=== PATIENT | male | born 1975 | race Caucasian/White ===

== ENCOUNTER → 2020-08-24 14:01 | Outpatient (BNVA) | payer OTHER, SELFPAY | PROVIDERS: Visit Provider Family Medicine | DX: I10 Essential (primary) hypertension (principal); Z13.6 Encounter for screening for cardiovascular disorders; E11.9 Type 2 diabetes mellitus without complications; R35.1 Nocturia; R00.2 Palpitations; K21.9 Gastro-esophageal reflux disease without esophagitis; Z68.43 Body mass index [BMI] 50.0-59.9, adult; F17.229 Nicotine dependence, chewing tobacco, with unspecified nicotine-induced disorders | CPT/HCPCS: 80053; 80061; 82043; 83036; 84153; 85025 ==

== ENCOUNTER → 2020-09-21 15:42 | Outpatient (BNVA) | payer OTHER, SELFPAY | PROVIDERS: PCP Family Medicine; Visit Provider Family Medicine | DX: E11.9 Type 2 diabetes mellitus without complications (principal); R79.89 Other specified abnormal findings of blood chemistry; I10 Essential (primary) hypertension; Z68.43 Body mass index [BMI] 50.0-59.9, adult; F17.229 Nicotine dependence, chewing tobacco, with unspecified nicotine-induced disorders | CPT/HCPCS: 80053; 80074 ==

== ENCOUNTER 2020-12-06 07:06 | Outpatient (CLI) | payer OTHER, SELFPAY ==
--- NOTE | 2020-12-06 07:15 | USCV_ITS ---
Jamie Dominguez Age: 45 Gender: M : 1975 Exam Date: 12/06/2020 07:26 Ordering Phys: Hector Mike M.D ([email or web address]) Technologist: Maddison Estevez Exam Location: [facility] [place] Indication: PALPITATIONS BP: 147 / 77 HR: 77 Rhythm: Sinus Technical Quality: Technically difficult study MEASUREMENTS (Male / Female) Normal Values 2D ECHO LV Diastolic Diameter PLAX 4.5 cm 4.2 - 5.9 / 3.9 - 5.3 cm LV Systolic Diameter PLAX 2.8 cm IVS Diastolic Thickness 1.8 cm 0.6 - 1.0 / 0.6 - 0.9 cm IVS Systolic Thickness 2.6 cm LVPW Diastolic Thickness 1.7 cm 0.6 - 1.0 / 0.6 - 0.9 cm LVPW Systolic Thickness 2.0 cm RV Chamber Size 3.0 cm LVOT Diameter 2.0 cm LV Ejection Fraction 2D Teich 65.0 % LV Ejection Fraction MOD 2C 69.2 % LV Ejection Fraction 2C AL 68.7 % LA Diameter 4.2 cm LA Width 3.5 cm LA Height 4.8 cm RA Width 3.0 cm RA Height 4.4 cm Aorta at Sinotubular Diameter 2.9 cm M-MODE Aortic Annulus Diameter 3.2 cm LA Ao Ratio MM 1.4 MV E Point Septal Separation 1.0 cm DOPPLER AV Peak Velocity 143.0 cm/s LVOT Peak Velocity 99.0 cm/s AV Area Cont Eq vti 2.3 cm squared AV Area Cont Eq pk 2.2 cm squared MV Area PHT 5.0 cm squared Mitral E to A Ratio 1.3 MV E' Velocity 55.0 cm/s Mitral E to MV E' Ratio 8.9 Mitral E to LV E' Lateral Ratio 8.0 Mitral E to LV E' Septal Ratio 10.1 TR Peak Velocity 247.7 cm/s TR Peak Gradient 24.5 mmHg TV Peak E Velocity 82.0 cm/s Right Atrial Pressure 3.0 mmHg Pulmonary Artery Systolic Pressu 27.5 mmHg PV Peak Velocity 121.0 cm/s RV Acceleration Time 0.1 s RV Ejection Time 0.3 s RV AcT/ET 0.3 FINDINGS Left Ventricle Normal left ventricular size. LV systolic function is normal with EF of 55-60%. No regional wall motion abnormalities. Normal diastolic filling pattern. Right Ventricle The right ventricle is normal in size and function. Right Atrium The right atrium is normal in size. Left Atrium The left atrium is normal in size. Mitral Valve Structurally normal mitral valve without significant stenosis or prolapse. There is trace mitral regurgitation. Aortic Valve Structurally normal aortic valve without significant sclerosis or stenosis. There is no aortic regurgitation. Tricuspid Valve Structurally normal tricuspid valve without significant stenosis. Trace tricuspid regurgitation. Pulmonary artery systolic pressure is normal. Pulmonic Valve Grossly normal Pericardium Normal pericardium without effusion. Aorta Normal ascending aorta dimension. CONCLUSIONS LV systolic function is normal with EF of 55-60% Diatsolic function is normal Trace mitral regurgitation and trace tricuspid regurigtation noted No comparison studies are available. Hector Mike MD (Electronically Signed) Final Date: 20 December 2020 15:04 S
== END 2020-12-06 07:07 | disposition home or self-care (01) ==
LOC: RAD 07:10
PROVIDERS: PCP Family Medicine; Visit Provider Internal Medicine
DX: I08.1 Rheumatic disorders of both mitral and tricuspid valves (principal); R00.2 Palpitations
CPT/HCPCS: 93306

== ENCOUNTER → 2020-12-07 15:34 | Outpatient (BNVA) | payer OTHER, SELFPAY | PROVIDERS: PCP Family Medicine; Visit Provider Family Medicine | DX: E11.9 Type 2 diabetes mellitus without complications (principal); K64.4 Residual hemorrhoidal skin tags; K21.9 Gastro-esophageal reflux disease without esophagitis | CPT/HCPCS: 80053; 80061; 83036 ==

== ENCOUNTER → 2021-08-12 14:58 | Outpatient (BNVA) | payer OTHER, SELFPAY | PROVIDERS: PCP Family Medicine; Visit Provider Family Medicine | DX: E11.9 Type 2 diabetes mellitus without complications (principal); I10 Essential (primary) hypertension; E78.5 Hyperlipidemia, unspecified; L21.9 Seborrheic dermatitis, unspecified | CPT/HCPCS: 80053; 82043; 83036 ==

== ENCOUNTER → 2022-02-28 09:02 | Outpatient (BNVA) | payer OTHER, SELFPAY | PROVIDERS: PCP Family Medicine; Visit Provider Family Medicine | DX: I10 Essential (primary) hypertension (principal); E11.9 Type 2 diabetes mellitus without complications | CPT/HCPCS: 80053; 80061; 82043; 83036; 85025 ==

== ENCOUNTER → 2022-10-19 15:55 | Outpatient (BNVA) | payer OTHER, SELFPAY | PROVIDERS: PCP Family Medicine; Visit Provider Family Medicine | DX: E11.9 Type 2 diabetes mellitus without complications (principal); R35.1 Nocturia | CPT/HCPCS: 80053; 83036; 84153 ==

== ENCOUNTER → 2023-03-06 07:31 | Outpatient (BNVA) | payer OTHER, SELFPAY | PROVIDERS: PCP Family Medicine; Visit Provider Family Medicine | DX: E78.5 Hyperlipidemia, unspecified (principal); I10 Essential (primary) hypertension; K21.9 Gastro-esophageal reflux disease without esophagitis; E11.9 Type 2 diabetes mellitus without complications | CPT/HCPCS: 80053; 80061; 82043; 83036; 85025 ==

== ENCOUNTER → 2023-09-06 16:13 | Outpatient (BNVA) | payer SELFPAY | PROVIDERS: PCP Family Medicine; Visit Provider Family Medicine | DX: E11.9 Type 2 diabetes mellitus without complications (principal); Z13.6 Encounter for screening for cardiovascular disorders | CPT/HCPCS: 80053; 83036 ==

== ENCOUNTER → 2024-04-03 15:43 | Outpatient (BNVA) | payer OTHER, SELFPAY | PROVIDERS: PCP Family Medicine; Visit Provider Family Medicine | DX: I10 Essential (primary) hypertension (principal); E78.2 Mixed hyperlipidemia; E11.9 Type 2 diabetes mellitus without complications; K21.9 Gastro-esophageal reflux disease without esophagitis; I49.3 Ventricular premature depolarization; R00.2 Palpitations; E04.9 Nontoxic goiter, unspecified | CPT/HCPCS: 80061; 82043; 82607; 83036; 83516; 83735; 84439; 84443; 84481; 85025; 86376 ==

== ENCOUNTER 2024-04-24 15:30 | Outpatient (CLI) | payer OTHER, SELFPAY ==
--- NOTE | 2024-04-24 16:00 | USR_ITS ---
PROCEDURE INFORMATION: Exam: US Soft Tissue Head and Neck, TI-RADS Exam date and time: 04/24/2024 3:39 PM Age: 48 years old Clinical indication: Condition or disease; Thyroid disorder; Goiter, non-toxic; Type not specified TECHNIQUE: Imaging protocol: Real-time ultrasound scan of the neck with image documentation. Exam focused on the thyroid. COMPARISON: No relevant prior studies available. FINDINGS: Right thyroid lobe: Enlarged right thyroid lobe, containing a large nodule. Left thyroid lobe: Not enlarged. Isthmus: Thickened isthmus measuring 0.8 cm. No nodules. LESION 1: Thyroid nodule 1 Size: 5.5 cm Thyroid nodule 1 Location: Mid right thyroid lobe Thyroid nodule 1 Composition: Solid Thyroid nodule 1 Echogenicity: Hypoechoic Thyroid nodule 1 Shape: Wider than taller Thyroid nodule 1 Margins: Lobulated Thyroid nodule 1 Echogenic foci: No Thyroid nodule 1 Points: 6 Lymph nodes: No enlarged nodes. US/US thyroid [id number] IMPRESSION: Mid right thyroid lobe nodule measuring 5.5 cm, with TI-RADS 4 imaging characteristics, for which FNA is recommended.
== END 2024-04-24 15:31 | disposition home or self-care (01) ==
PROVIDERS: PCP Family Medicine; Visit Provider Family Medicine
DX: E04.1 Nontoxic single thyroid nodule (principal)
CPT/HCPCS: 76536

== ENCOUNTER 2024-07-10 22:38 | Emergency (ER) | payer OTHER, SELFPAY ==
[2024-07-10 22:53] VITALS: BP 190/94; PULSE 75; RESP 18; TEMP 36.8; O2SAT 95; BMI 50.3
[2024-07-10 22:56] VITALS: PULSE 70; RESP 16; O2SAT 96
--- NOTE | 2024-07-10 23:34 | XRR_ITS ---
PROCEDURE INFORMATION: Exam: XR Chest Exam date and time: 07/10/2024 11:49 PM Age: 48 years old Clinical indication: Cough and fever and shortness of breath; Patient HX: Cough with SOB and fever; Additional info: Cough, fever TECHNIQUE: Imaging protocol: Radiologic exam of the chest. Views: 2 views. COMPARISON: No relevant prior studies available. FINDINGS: Lungs: The lungs are clear and free of effusions. Pleural spaces: Unremarkable. No pleural effusion. No pneumothorax. Heart/Mediastinum: The heart and mediastinum are unremarkable. Bones/joints: Unremarkable. XR/XR chest 2V* [id number] IMPRESSION: Unremarkable
--- NOTE | 2024-07-10 23:35 | W.ED.URI ---
HPI - URI/Sore Throat General: Chief Complaint: Upper Respiratory Infection Stated Complaint: Can't Breath Time Seen by Provider: 07/10/24 22:58 Source: patient Mode of arrival: ambulatory Limitations: no limitations History of Present Illness: Patient is a 48-year-old male that presents to the emergency department with cough, wheezing and intermittent fevers. He states this all began on Sunday morning when he awoke. He states he has had some intermittent, subjective fevers. He denies any abdominal pain, nausea, vomiting. He states he is a former smoker but quit many years ago. He reports some wheezing and shortness of breath with this. He is concerned that he may have pneumonia. He denies any exposures to anybody that has had influenza or COVID recently. He presents to the emergency department for further evaluation and treatment. Associated symptoms: Reports fever(s) (Subjective); Deny abdominal pain, chest pain, ear or mastoid pain, headache(s), nausea or vomiting Related Data Previous Rx's Medication Instructions Recorded aspirin 81 mg tablet,delayed 81 mg PO DAILY #30 tabs 09/21/22 release ketoconazole 2 % shampoo 1 applic topical .twice weekly 09/21/22 #120 mL lisinopril 40 mg tablet 40 mg PO DAILY #90 tabs 09/06/23 metoprolol tartrate 25 mg tablet 37.5 mg (1.5 x 25 mg) PO BID #270 09/06/23 tabs rosuvastatin 10 mg tablet 10 mg PO .AT BEDTIME #90 tabs 03/04/24 metformin 1,000 mg tablet 1,000 mg PO DAILY #90 tabs 03/24/24 omeprazole 40 mg capsule,delayed 40 mg PO DAILY #90 caps 04/03/24 release terbinafine HCl 250 mg tablet 250 mg PO DAILY 14 days #14 tabs 04/03/24 empagliflozin 10 mg tablet See Rx Instructions .Route 04/17/24 (Jardiance) .COMPLEX #90 tabs diltiazem HCl 360 mg capsule,24 See Rx Instructions .Route 06/17/24 hr,extended release .COMPLEX #30 caps Allergies Allergy/AdvReac Type Severity Reaction Status Date / Time No Known Allergies Allergy Verified 07/10/24 22:57 Review of Systems Const: Reports: fever(s) (Subjective) Eyes: Denies: change in vision ENMT: Denies: throat pain or ear or mastoid pain Card: Denies: chest pain Resp: Reports: dyspnea, non-productive cough and wheezing GI: Denies: abdominal pain, nausea or vomiting : Denies: flank pain, difficulty urinating or dysuria Musc: Denies: neck pain or back pain Skin/Breast: Denies: rash, pruritus or erythema Neuro: Denies: headache(s) or numbness in extremities Psych: Denies: anxiety Endo: Denies: polyuria or polydipsia Arnold/Lymph: Denies: petechiae All/Imm: Denies: urticaria, throat swelling or tongue swelling PFSH ED PFSH: Medical History Morbid obesity with BMI of 50.0-59.9, adult PVC (premature ventricular contraction) has seen [facility]; has had ECHO; 14d monitor Palpitations has seen [facility] cardio; has had ECHO; 14d monitor--PVCs, PACs Goiter Hyperlipidemia, mixed Nicotine dependence, chewing tobacco, with unspecified nicotine-induced disorders Essential hypertension GERD (gastroesophageal reflux disease) Type 2 diabetes mellitus, without long-term current use of insulin Surgical History No pertinent past surgical history Family History Other Atrial fibrillation Diabetes Hypertension Social History (Updated 07/10/24 @ 23:44 by CHRISTEL Vela) Smoking and tobacco/nicotine status: former use of tobacco/nicotine Alcohol intake: never Substance/Drug Use: never Household members: spouse and children Marital status: Number of children: 2 Highest education level completed: High School Graduate Current occupational status: employed 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 Physical Exam Const: COMMON NORMALS: no acute distress and patient oriented x3 GENERAL APPEARANCE: cooperative ORIENTATION/CONSCIOUSNESS: Yes awake HENMT: COMMON NORMALS: normocephalic, atraumatic, external ears normal, EAC's normal, TM's normal bilaterally and Normal external nose present HEAD & SCALP: normocephalic and atraumatic FACE & SINUS: normal facial exam NOSE: Normal external nose present EXTERNAL EAR: Yes external ears normal EXTERNAL AUDITORY CANAL: EAC's normal TYMPANIC MEMBRANE: TM's normal bilaterally MOUTH: Normal oral and palatal mucosa present and tongue normal; no audible dysphonia, no drooling and no trismus THROAT: posterior oropharynx normal Neck/C-Spine: COMMON NORMALS: full ROM and supple Resp: COMMON NORMALS: normal respiratory effort EFFORT & INSPECTION: Yes able to speak in complete sentences AUSCULTATION: crackles Laterality: bilateral and posterior and wheezes expiratory wheezes, left lower and right lower Cardio: COMMON NORMALS: regular rate and regular rhythm RATE: regular rate RHYTHM: regular rhythm GI: COMMON NORMALS: Soft to palpation AUSCULTATION: Yes normoactive bowel sounds PALPATION: Yes Soft to palpation, No Tenderness to palpation present (GI), No Guarding due to palpation present (GI) and No Rigid due to palpation Extremity: COMMON NORMALS: normal to inspection and full ROM Neuro: COMMON NORMALS: patient oriented x3 Psych: COMMON NORMALS: mental status grossly normal, cooperative, normal affect and speech normal SPEECH: Yes normal speech Skin: COMMON NORMALS: no rashes or lesions noted, no jaundice and no petechiae GENERAL SKIN EXAM: no rashes or lesions noted TRAUMA: no lacerations or abrasions Course Reevaluation(s): Reevaluation #1: Patient reports he is feeling better after the breathing treatment. He does not have any infiltrates noted on the chest x-ray. He did test positive for influenza A. His wheezing has improved with the albuterol. Time: 12:48 Vital Signs: Vital signs: Vital Signs Temperature 98.3 F 07/10/24 22:53 Pulse Rate 73 07/11/24 00:20 Respiratory Rate 17 07/11/24 00:20 Blood Pressure 190/94 07/10/24 22:53 Pulse Oximetry 96 07/11/24 00:20 Oxygen Delivery Me thod Room Air 07/11/24 00:20 MDM - URI/Sore Throat Medical Decision Making Patient was advised to use the albuterol as directed, continue [id number] Tylenol or ibuprofen for fever or bodyaches and follow-up with his primary care provider next week for recheck. Patient reports he is feeling better after the albuterol. Wheezing has resolved. The patient did test positive for influenza A. Because his symptoms began on Sunday he was outside the timeframe for treatment with Tamiflu. His COVID and RSV were both negative. I recommended that he follow-up as instructed and return to the emergency department with any worsening symptoms. The patient expressed understanding. Differential Diagnosis Likely upper respiratory infection, viral infection, bronchitis and influenza Lab Data I reviewed the patient's lab results. Radiology Impressions Chest X-Ray 07/10/24 23:34 IMPRESSION: Unremarkable Laboratory Results Coronavirus (PCR) Negative (Negative) 07/10/24 23:50 Influenza A (PCR) Positive (Negative) 07/10/24 23:50 Influenza Type B (PCR) Negative (Negative) 07/10/24 23:50 RSV (PCR) Negative (Negative) 07/10/24 23:50 All radiology interpretation(s) finalized by discharge Critical Care Time Critical Care Time: Critical Care Time: No Discharge Plan Discharge Patient Disposition: Home Clinical Impression: Influenza A, Acute bronchitis, Expiratory wheezing Condition: Stable Prescriptions: No Action aspirin 81 mg tablet,delayed release (DR/EC) 81 mg PO DAILY Qty: 30 0RF ketoconazole 2 % shampoo 1 applic topical .twice weekly Qty: 120 0RF metoprolol tartrate 25 mg tablet 37.5 mg PO BID Qty: 270 3RF lisinopril 40 mg tablet 40 mg PO DAILY Qty: 90 1RF terbinafine HCl 250 mg tablet 250 mg PO DAILY 14 Days Qty: 14 0RF omeprazole 40 mg capsule,delayed release(DR/EC) 40 mg PO DAILY Qty: 90 0RF rosuvastatin 10 mg tablet 10 mg PO .AT BEDTIME Qty: 90 1RF metformin 1,000 mg tablet 1,000 mg PO DAILY Qty: 90 1RF Rx Instructions: 1,000 mg orally daily; Jardiance 10 mg tablet See Rx Instructions .ROUTE .COMPLEX Qty: 90 1RF Dose Instruction: TAKE 1 TABLET BY MOUTH EVERY MORNING Rx Instructions: TAKE 1 TABLET BY MOUTH EVERY MORNING diltiazem HCl 360 mg capsule,extended release 24 hr See Rx Instructions .ROUTE .COMPLEX Qty: 30 1RF Dose Instruction: TAKE ONE CAPSULE BY MOUTH EVERY DAY Rx Instructions: TAKE ONE CAPSULE BY MOUTH EVERY DAY Discharge Orders: Discharge ED (Routine); Ordered 07/11/24 Ordered By: Yared Kelley Referrals: Deyanira Whitman MD [Primary Care Provider] - Discharge Diet: Usual diet Discharge Activity: Resume usual activity Patient Instructions: Influenza (ED), Acute Bronchitis (ED), Opioid Safety, Pain Management Activity Restrictions/Additional Instructions: Use the inhaler as directed; 2 puffs every 4-6 hours as needed for wheezing. Use [id number] Tylenol or ibuprofen as directed for fever and/or bodyaches. [id number] Robitussin with plenty of clear fluids as directed. Try to stay away from people until you are fever free for 24 hours. Follow-up with your doctor in 1 week for recheck. Return to the emergency department with any worsening symptoms. Coding Level of Care Code ED Lumber Hacker for Surya Luke
[2024-07-11 00:20] VITALS: PULSE 73; RESP 17; O2SAT 96
[2024-07-11] MEDS: albuterol 8 gm MDI 2 PUFF INHALATION (00:20)
[2024-07-11 00:31] LABS: Covid PCR NEGATIVE (Negative); Influenza A POSITIVE (Negative); Influenza B NEGATIVE (Negative); Respiratory Syncytial Virus Ce NEGATIVE (Negative)
== END 2024-07-11 01:08 | disposition home or self-care (01) ==
PROVIDERS: Emergency Provider Physician Assistant; PCP Family Medicine
DX: J10.1 Influenza due to other identified influenza virus with other respiratory manifestations (principal); J20.9 Acute bronchitis, unspecified; R06.2 Wheezing; Z11.52 Encounter for screening for COVID-19; Z79.82 Long term (current) use of aspirin; Z87.891 Personal history of nicotine dependence; E11.9 Type 2 diabetes mellitus without complications; I10 Essential (primary) hypertension
CPT/HCPCS: 12345; 71046; 87637; 94640; 99283; J3535

== ENCOUNTER 2024-10-01 15:05 | Emergency (ER) | payer OTHER, SELFPAY ==
[2024-10-01 15:17] VITALS: PULSE 75; TEMP 36.6; O2SAT 95
--- NOTE | 2024-10-01 17:32 | XRR_ITS ---
PROCEDURE INFORMATION: Exam: XR Right Humerus Exam date and time: 10/01/2024 5:36 PM Age: 48 years old Clinical indication: Pain; Upper arm; Right; Additional info: Pain to distal elbow, concern for biceps tear TECHNIQUE: Imaging protocol: Radiologic exam of the right humerus. Views: 2 or more views. COMPARISON: No relevant prior studies available. FINDINGS: Bones/joints: The humerus is grossly intact. No evidence of fracture. Soft tissues: No gross soft tissue abnormality. 3 mm calcification in the region of the greater tuberosity, possibly reflecting calcium hydroxyapatite deposition. XR/[place] [id number] IMPRESSION: 1. No evidence of fracture or malalignment. If there is concern for ligamentous or tendon pathology, follow-up outpatient MRI may be helpful.
--- NOTE | 2024-10-01 17:34 | W.ED.EXTPRO ---
HPI - Extremity Problem General: Chief complaint: Extremity Injury, Upper Stated complaint: R arm pain Time Seen by Provider: 10/01/24 17:20 Source: patient Mode of arrival: ambulatory Limitations: no limitations History of Present Illness: Patient is a 48-year-old male who presents the emergency department complaining of right upper extremity pain a few hours prior to coming in. At work, patient was pulling a large neftali when he felt sudden sharp pain through his distal right bicep, arrives stating there is deformity near the elbow. Reports diminished strength as well as significant pain with range of motion at the elbow, worse with flexion. Has not taken any medications for this, no trauma reported. No other symptoms at this time. Reporting the pain is severe. MD Complaint: extremity pain Onset (ago): hour(s) Pain Consistency: constant Location: right and upper extremity Radiation: proximal Exacerbating factors: range of motion and palpation Associated symptoms: Deny chest pain, fever(s) or rash Related Data Previous Rx's ?Medication ?Instructions ?Recorded aspirin 81 mg tablet,delayed 81 mg PO DAILY #30 tabs 09/21/22 release ketoconazole 2 % shampoo 1 applic topical .twice weekly 09/21/22 #120 mL metoprolol tartrate 25 mg tablet 37.5 mg (1.5 x 25 mg) PO BID #270 09/06/23 tabs rosuvastatin 10 mg tablet 10 mg PO .AT BEDTIME #90 tabs 03/04/24 metformin 1,000 mg tablet 1,000 mg PO DAILY #90 tabs 03/24/24 terbinafine HCl 250 mg tablet 250 mg PO DAILY 14 days #14 tabs 04/03/24 empagliflozin 10 mg tablet See Rx Instructions .Route 04/17/24 (Jardiance) .COMPLEX #90 tabs omeprazole 40 mg capsule,delayed 40 mg PO DAILY #90 caps 07/11/24 release amoxicillin 500 mg-potassium 1 tab PO TID #30 tabs 07/14/24 clavulanate 125 mg tablet (Augmentin) prednisone 20 mg tablet 20 mg PO BID #10 tabs 07/14/24 diltiazem HCl 360 mg capsule,24 See Rx Instructions .Route 08/11/24 hr,extended release .COMPLEX #30 caps lisinopril 40 mg tablet 40 mg PO DAILY #90 tabs 08/11/24 Allergies Allergy/AdvReac Type Severity Reaction Status Date / Time No Known Allergies Allergy Verified 10/01/24 15:23 Review of Systems General: Reports: 10 or more systems reviewed and unremarkable except in HPI and below Const: Denies: fever(s) or chills Card: Denies: chest pain Resp: Denies: dyspnea or productive cough GI: Denies: abdominal pain, nausea, vomiting or diarrhea : Denies: flank pain Musc: Reports: extremity pain (rue) and muscle weakness; Denies: neck pain, back pain, extremity swelling, joint pain, joint swelling, joint redness, joint warmth or limited range of motion Skin/Breast: Denies: rash Neuro: Denies: headache(s), numbness in extremities or weakness in extremities PFSH ED PFSH: Medical History Morbid obesity with BMI of 50.0-59.9, adult PVC (premature ventricular contraction) has seen [facility] Cardio; has had ECHO; 14d monitor Palpitations has seen [facility] cardio; has had ECHO; 14d monitor--PVCs, PACs Goiter Hyperlipidemia, mixed Nicotine dependence, chewing tobacco, with unspecified nicotine-induced disorders Essential hypertension GERD (gastroesophageal reflux disease) Type 2 diabetes mellitus, without long-term current use of insulin Surgical History No pertinent past surgical history Family History Other Atrial fibrillation Diabetes Hypertension Social History Smoking and tobacco/nicotine status: never used tobacco/nicotine Alcohol intake: never Substance/Drug Use: never Household members: spouse and children Marital status: Number of children: 2 Highest education level completed: High School Graduate Current occupational status: employed 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 Physical Exam Const: COMMON NORMALS: no acute distress, patient oriented x3, no limitations, healthy appearing, alert and well nourished HENMT: COMMON NORMALS: normocephalic and atraumatic HEAD & SCALP: normocephalic and atraumatic Neck/C-Spine: COMMON NORMALS: full ROM, supple and no meningeal signs Resp: COMMON NORMALS: normal respiratory effort, No use of accessory muscles and clear to auscultation bilaterally AUSCULTATION: clear to auscultation bilaterally Cardio: COMMON NORMALS: regular rate and regular rhythm RATE: regular rate RHYTHM: regular rhythm Extremity: COMMON NORMALS: normal to inspection, full ROM, capillary refill normal, no joint enlargement and no clubbing, cyanosis or edema NARRATIVE EXTREMITY EXAM: Severe pain with range of motion at the right upper extremity at the elbow, specifically with flexion. No palpable Cecil deformity, though there is reproducible tenderness to palpation at the right distal insertion of the biceps tendon. Negative Yergason sign. Neuro: COMMON NORMALS: patient oriented x3, moves all extremities, no focal motor deficits and no sensory deficits noted SENSORIUM/ORIENTATION: Yes alert MENINGEAL SIGNS: Yes no meningeal signs Skin: COMMON NORMALS: no rashes or lesions noted GENERAL SKIN EXAM: no rashes or lesions noted Course Vital Signs: Vital signs: Vital Signs Temperature 97.9 F 10/01/24 15:17 Pulse Rate 75 10/01/24 15:17 Pulse Oximetry 95 10/01/24 15:17 Oxygen Delivery Me thod Room Air 10/01/24 15:17 MDM - Extremity (Nontraumatic) Medical Decision Making Is presenting with right upper extremity pain after pulling. Tender to palpation at distal right humerus, no Cecil deformity. Significant pain with range of motion however, I do have concern of a biceps strain at distal insertion. X-ray was unremarkable. Discussed conservative therapy will have him see orthopedics for further evaluation. Work note was provided and encouraged him to avoid use specifically of pain. Lab Data Radiology Impressions Humerus X-Ray 10/01/24 17:32 IMPRESSION: 1. No evidence of fracture or malalignment. If there is concern for ligamentous or tendon pathology, follow-up outpatient MRI may be helpful. All radiology interpretation(s) finalized by discharge Discharge Plan Discharge Patient Disposition: Home Clinical Impression: Biceps strain Qualifiers: Encounter type: initial encounter Laterality: right Qualified Code(s): S46.211A - Strain of muscle, fascia and tendon of other parts of biceps, right arm, initial encounter Condition: Stable Prescriptions: No Action prednisone 20 mg tablet 20 mg PO BID Qty: 10 0RF amoxicillin-pot clavulanate [Augmentin] 500-125 mg tablet 1 tab PO TID Qty: 30 0RF aspirin 81 mg tablet,delayed release (DR/EC) 81 mg PO DAILY Qty: 30 0RF ketoconazole 2 % shampoo 1 applic topical .twice weekly Qty: 120 0RF metoprolol tartrate 25 mg tablet 37.5 mg PO BID Qty: 270 3RF terbinafine HCl 250 mg tablet 250 mg PO DAILY 14 Days Qty: 14 0RF rosuvastatin 10 mg tablet 10 mg PO .AT BEDTIME Qty: 90 1RF metformin 1,000 mg tablet 1,000 mg PO DAILY Qty: 90 1RF Rx Instructions: 1,000 mg orally daily; Jardiance 10 mg tablet See Rx Instructions .ROUTE .COMPLEX Qty: 90 1RF Dose Instruction: TAKE 1 TABLET BY MOUTH EVERY MORNING Rx Instructions: TAKE 1 TABLET BY MOUTH EVERY MORNING omeprazole 40 mg capsule,delayed release(DR/EC) 40 mg PO DAILY Qty: 90 0RF diltiazem HCl 360 mg capsule,extended release 24 hr See Rx Instructions .ROUTE .COMPLEX Qty: 30 1RF Dose Instruction: TAKE ONE CAPSULE BY MOUTH EVERY DAY Rx Instructions: TAKE ONE CAPSULE BY MOUTH EVERY DAY lisinopril 40 mg tablet 40 mg PO DAILY Qty: 90 1RF Discharge Orders: Discharge ED (Routine); Ordered 10/01/24 Ordered By: Lobo Jackson Referrals: Deyanira Whitman MD [Primary Care Provider] - Activity Restrictions/Additional Instructions: Please follow-up with orthopedics. Ice/heat. Ibuprofen and Tylenol. Minimal range of motion exercises as tolerated, do not push through pain. Return with any new or worsening. Stand Alone Forms: Work/School Release Print Language: Sami Coding Level of Care Code ED Motor Coach Operator for Surya Luke
[2024-10-01] MEDS: ketorolac 60 mg/2 mL INJ IM (17:50)
[2024-10-01 19:16] VITALS: BP 181/98; PULSE 75; O2SAT 94
--- NOTE | 2024-10-02 07:52 | DCPLANNER ---
messaged ortho for er f/u
== END 2024-10-01 19:17 | disposition home or self-care (01) ==
PROVIDERS: Emergency Provider Physician Assistant; PCP Family Medicine
DX: S46.211A Strain of muscle, fascia and tendon of other parts of biceps, right arm, initial encounter (principal); Z79.82 Long term (current) use of aspirin; Z79.84 Long term (current) use of oral hypoglycemic drugs; E11.9 Type 2 diabetes mellitus without complications; E78.2 Mixed hyperlipidemia; X58.XXXA Exposure to other specified factors, initial encounter
CPT/HCPCS: 73060; 96372; 99284; J1885

== ENCOUNTER → 2024-10-07 13:37 | Outpatient (BNVA) | payer OTHER, SELFPAY | PROVIDERS: PCP Family Medicine; Visit Provider Orthopaedic Surgery | DX: S46.211A Strain of muscle, fascia and tendon of other parts of biceps, right arm, initial encounter (principal); X58.XXXA Exposure to other specified factors, initial encounter | CPT/HCPCS: 73060 ==

== ENCOUNTER 2024-10-09 13:02 | Outpatient (CLI) | payer OTHER, SELFPAY ==
--- NOTE | 2024-10-09 13:45 | MR_ITS ---
WS: [id number] MRI RIGHT ELBOW WITHOUT CONTRAST. COMPARISON: Radiographs 10/07/2024 Multiplanar, multisequence imaging is performed without contrast. Complete tear of the biceps tendon at the radial tuberosity insertion. The biceps tendon is retracted and redundant with a large amount of surrounding fluid centered in the mid biceps tendon sheath. There is fluid signal at the radial tuberosity but no residual biceps tendon. The brachialis tendon is normal. Normal insertion to the anterior tuberosity of the coronoid process. No acute fractures or marrow edema. No joint effusion. The visualized triceps tendon is normal. No signal abnormality within the ulnar or radial collateral ligaments. MR/MR elbow RT wo con* [id number] IMPRESSION: 1. Complete tear of the biceps tendon at the radial tuberosity with retraction approximately 12 cm. 2. A large amount of edema within the biceps tendon sheath and the biceps musc le in the mid humerus. 3. Brachialis tendon is intact.
== END 2024-10-09 13:03 | disposition home or self-care (01) ==
PROVIDERS: PCP Family Medicine; Visit Provider Orthopaedic Surgery
DX: S46.211A Strain of muscle, fascia and tendon of other parts of biceps, right arm, initial encounter (principal); X58.XXXA Exposure to other specified factors, initial encounter; R60.0 Localized edema
CPT/HCPCS: 73221

== ENCOUNTER → 2025-01-22 10:03 | Outpatient (BNVA) | payer OTHER, SELFPAY | PROVIDERS: PCP Family Medicine; Visit Provider Family Medicine | DX: E11.9 Type 2 diabetes mellitus without complications (principal) | CPT/HCPCS: 80053; 83036 ==

== ENCOUNTER 2025-03-31 06:51 | Day surgery (SDC) | payer OTHER, SELFPAY ==
[2025-03-31 07:14] VITALS: BP 173/109; PULSE 67; RESP 18; TEMP 36.6; O2SAT 97; BMI 47.5
--- NOTE | 2025-03-31 08:20 | ANES.PREANE2 ---
Pre-Anesthetic Assessment Height/Weight: Height 1.93 m Weight 176.901 kg Temp Pulse Resp BP Pulse Ox O2 Del Method 97.9 F 67 18 173/109 97 Room Air 03/31/25 07:14 03/31/25 07:14 03/31/25 07:14 03/31/25 07:14 03/31/25 07:14 03/31/25 07:14 Preop Diagnosis: screening Operation Date: 03/31/25 08:30 Proposed Procedures p Colonoscopy 10601 [id number] R19.5(Not Applicable) - Keegan Gary MD Familial anesthetic complications: none Was Beta Rosita taken within 24 hours: N/A Was Clonidine taken within 24 hours: N/A Last intake: Intake Last Liquid Date 03/30/25 Last Liquid Time 23:00 Last Solid Date 03/29/25 Last Solid Time 20:00 Social No alcohol and No tobacco Exam alert, oriented x 3, clear to auscultation bilaterally and regular rate & rhythm Airway Submandibular: within normal limits Cervical ROM: within normal limits Mallampati: Class II Dentition: full History/ROS No significant history except as noted and No significant complaints Pulmonary Exertional Dyspnea CV/HEM Hypertension PVC's/runs of a fast heart rate/ not diagnosed as yet. None reported Hepatic None reported GI Gastroesophageal Reflux Disease Metabolic Morbid Obesity [facility] [place] None reported Neuropsych Anxiety Anesthetic Plan ASA status: 3 Anesthesia: MAC Risk of > 500 ml blood loss (7ml/kg in children): No Medications/Allergies Home Medications ?Medication ?Instructions ?Recorded ?Confirmed ?Last Taken ?Type aspirin 81 mg tablet,delayed 81 mg PO DAILY #30 tabs 09/21/22 03/31/25 03/25/25 Rx release omeprazole 40 mg capsule,delayed 40 mg PO DAILY #90 caps 01/22/25 03/31/25 03/31/25 Rx release lisinopril 40 mg tablet 40 mg PO DAILY #7 tabs 03/24/25 03/31/25 03/25/25 Rx metoprolol tartrate 25 mg tablet 37.5 mg (1.5 x 25 mg) PO BID #21 03/24/25 03/31/25 03/31/25 Rx tabs rosuvastatin 10 mg tablet 10 mg PO .AT BEDTIME #7 tabs 03/24/25 03/31/25 03/30/25 Rx diltiazem HCl 360 mg capsule,24 360 mg PO DAILY #7 caps 03/25/25 03/31/25 03/31/25 Rx hr,extended release empagliflozin 10 mg tablet 10 mg PO DAILY 03/25/25 03/31/25 03/25/25 History (Jardiance) Allergies Allergy/AdvReac Type Severity Reaction Status Date / Time No Known Allergies Allergy Verified 03/31/25 07:07 Current Medications Generic Name Dose Route Start Last Admin Trade Name Freq PRN Reason Stop Dose Admin Sodium Chloride 1,000 mls @ 15 mls/hr 03/31/25 07:04 03/31/25 07:28 Sodium Chloride 0.9% IV 04/01/25 07:03 15 mls/hr .Q24H PRN Administration COLONOSCOPY FLUIDS [facility] Anesthesia Medical History (Updated 02/23/25 @ 15:05 by Keegan Gary MD) Morbid obesity with BMI of 50.0-59.9, adult PVC (premature ventricular contraction) has seen [facility]; has had ECHO; 14d monitor Palpitations has seen [facility] cardio; has had ECHO; 14d monitor--PVCs, PACs Goiter Hyperlipidemia, mixed Nicotine dependence, chewing tobacco, with unspecified nicotine-induced disorders Essential hypertension Gastroesophageal reflux disease without esophagitis Type 2 diabetes mellitus without complication, without long-term current use of insulin Surgical History No pertinent past surgical history Family History Other Atrial fibrillation Diabetes Hypertension Social History Smoking and tobacco/nicotine status: never used tobacco/nicotine Alcohol intake: never Substance/Drug Use: never Household members: spouse and children Marital status: Number of children: 2 Highest education level completed: High School Graduate Current occupational status: employed Previous occupational history: [employer] Data Anesthesia Cardiac Studies: Echocardiogram Ultrasound 12/06/20 Cardiac Event Monitor 08/31/20
--- NOTE | 2025-03-31 08:34 | W.PM.OPSFHP ---
Same Day Surgery H&P Indication for Procedure/HPI DATE OF PROCEDURE: March 31, 2025 CHIEF COMPLAINT/INDICATIONFOR SURGICAL PROCEDURE: positive hemoccult test PREOP DIAGNOSIS: positive hemoccult test PLANNED PROCEDURE: Operation Date: 03/31/25 08:30 Proposed Procedures p Colonoscopy 31602 G0105 R19.5(Not Applicable) - Keegan Gary MD Medications/Allergies* Home Medications ?Medication ?Instructions ?Recorded ?Confirmed ?Type empagliflozin 10 mg tablet 10 mg PO DAILY 03/25/25 03/31/25 History (Jardiance) Allergies/Adverse Reactions Allergy/AdvReac Type Severity Reaction Status Date / Time No Known Allergies Allergy Verified 03/31/25 07:07 Current Medications: Generic Name Dose Route Start Last Admin Trade Name Freq PRN Reason Stop Dose Admin Sodium Chloride 1,000 mls @ 15 mls/hr 03/31/25 07:04 03/31/25 07:28 Sodium Chloride 0.9% IV 04/01/25 07:03 15 mls/hr .Q24H PRN Administration COLONOSCOPY FLUIDS Pertinent History/Comorbid Conditions* Medical History (Updated 02/23/25 @ 15:05 by Keegan Gary MD) Morbid obesity with BMI of 50.0-59.9, adult PVC (premature ventricular contraction) has seen [facility]; has had ECHO; 14d monitor Palpitations has seen [facility] cardio; has had ECHO; 14d monitor--PVCs, PACs Goiter Hyperlipidemia, mixed Nicotine dependence, chewing tobacco, with unspecified nicotine-induced disorders Essential hypertension Gastroesophageal reflux disease without esophagitis Type 2 diabetes mellitus without complication, without long-term current use of insulin Surgical History (Updated 08/24/20 @ 13:38 by Aida Oscar DO) No pertinent past surgical history Family History (Updated 08/24/20 @ 13:27 by Kezia Anderson LPN) Diabetes Atrial fibrillation Hypertension Social History Smoking and tobacco/nicotine status: never used tobacco/nicotine Alcohol intake: never Substance/Drug Use: never Household members: spouse and children Marital status: Number of children: 2 Highest education level completed: High School Graduate Current occupational status: employed Previous occupational history: [employer] Pertinent Exam Findings alert, oriented x 3, clear to auscultation bilaterally, regular rate & rhythm and procedure specific exam findings abdomen soft, nt, nd Recommendations Risks and benefits of procedure reviewed and Patient/family agree to proceed Surgery/Procedure today Other Plans: I have explained the risks and benefits of a diagnostic colonoscopy and the patient agrees to proceed. Patient understands that hemoccult is not an alternative in this case and decides to proceed with colonoscopy. Had an extensive discussion with the patient. Answered all questions. Patient understands that the risks include a 1% risk of iatrogenic perforation and risk of aspiration. Coding Level of Care Code Acute Code for g Fwd
[2025-03-31 09:08] VITALS: BP 160/78; PULSE 68; RESP 18; TEMP 36.2; O2SAT 94
[2025-03-31 09:20] VITALS: BP 160/73; PULSE 64; RESP 18; O2SAT 97
--- NOTE | 2025-03-31 09:50 | ANE.PACU2 ---
Inpatient post-anesthesia follow up: Airway intact: Yes Vital signs: Temperature 97.2 F Pulse Rate 64 Respiratory Rate 18 Blood Pressure 160/73 Pulse Oximetry 97 Oxygen Delivery Me thod Room Air Oxygen Flow Rate Fraction of Inspir ed Oxygen Hydration adequate: Yes Nausea and vomiting: No Pain level: 1 Mental status: Baseline
== END 2025-03-31 09:50 | disposition home or self-care (01) ==
PROVIDERS: PCP Family Medicine; Visit Provider Student in an Organized Health Care Education/Training Program
PROC: 0DJD8ZZ Inspection of Lower Intestinal Tract, Via Natural or Artificial Opening Endoscopic (ICD-10-PCS; CPT 45378; principal; 2025-03-31 08:30)
DX: Z12.11 Encounter for screening for malignant neoplasm of colon (principal); R19.5 Other fecal abnormalities; K21.9 Gastro-esophageal reflux disease without esophagitis; E66.01 Morbid (severe) obesity due to excess calories; Z68.42 Body mass index [BMI] 45.0-49.9, adult; I49.3 Ventricular premature depolarization; R00.2 Palpitations; E78.5 Hyperlipidemia, unspecified; I10 Essential (primary) hypertension; E11.9 Type 2 diabetes mellitus without complications; F17.220 Nicotine dependence, chewing tobacco, uncomplicated; F41.9 Anxiety disorder, unspecified; Z79.82 Long term (current) use of aspirin
CPT/HCPCS: 36416; 45378; 82962; J2704; J7030